=== PATIENT | male | born 1970 | race Hispanic/Latino ===

== ENCOUNTER 2022-11-18 14:09 | Emergency (ER) | payer SELFPAY ==
[2022-11-18] MEDS ORDERED: Acetaminophen 500 MG TAB ONE (15:57)
== END 2022-11-18 16:07 | disposition home or self-care (01) ==
LOC: CSHERS 14:09
DX: M79.605 Pain in left leg (principal)

== ENCOUNTER 2025-04-21 20:56 | Emergency (ER) | payer SELFPAY ==
[2025-04-21] MEDS ORDERED: Lidocaine 1% w/Epinephrine 1:200K 30 ML VIAL ONE (21:24)
== END 2025-04-21 21:55 | disposition home or self-care (01) ==
LOC: CSHERS 20:56
DX: S51.812A Laceration without foreign body of left forearm, initial encounter (principal); W29.8XXA Contact with other powered hand tools and household machinery, initial encounter; Z23 Encounter for immunization
CPT/HCPCS: 12001; 90471; 90715

== ENCOUNTER 2025-05-02 08:37 | Emergency (ER) | payer SELFPAY | END 2025-05-02 09:18 | disposition home or self-care (01) | LOC: CSHERS 08:37 | DX: S51.812D Laceration without foreign body of left forearm, subsequent encounter (principal); Z86.718 Personal history of other venous thrombosis and embolism; Z86.16 Personal history of COVID-19 ==